=== PATIENT | female | born 1985 | race Caucasian/White ===

== ENCOUNTER 2019-03-29 11:25 | Emergency (ER) | payer MEDICAID ==
[~2019-03-29] VITALS: Ht 160 cm; Wt 77.1 kg
--- NOTE | 2019-03-29 11:29 | NUR ---
PT BIBA TO BED 01.
[2019-03-29 11:33] VITALS: BP 155/73
[2019-03-29] MEDS ORDERED: NACL 0.9% 500 ML IV ONE ×2 (11:34)
--- NOTE | 2019-03-29 11:41 | NUR ---
PT BROUGHT IN BY EMS FOR ALTERED LOC AT WORK. PT WAS SLOW TO ANSWER QUESTIONS WHEN EMS ARRIVED. BLOOD SUGAR WAS 20, EMS GAVE 250CC D10 IN THE FIELD. BLOOD SUGAR WENT TO 162. PT IS ALERT UPON ARRIVAL TO ER. NO INJURY OR TRAUMA NOTED. PT IS AAOX4 AND HAS A CLEAR SPEECH. BLOOD SUGAR 74, PT PROVIDED WITH APPLE JUICE. BED RAIL UP X 1 FOR PT SAFETY. WILL CONTINUE TO MONITOR. ER MD TO SEE PT. NKA HX: DM, HTN RX: INSULIN, LABETALOL, AMLODIPINE
--- NOTE | 2019-03-29 12:07 | NUR ---
ATTEMPTED ABG 3X. PHYSICIAN STATES ABG NOT NEEDED AT THIS TIME.
[2019-03-29 12:09] LABS: BASOPHILS % (AUTO) 0.3 % (0.0-2.0); EOSINOPHILS # (AUTO) 0.1 K/uL (0-0.4); EOSINOPHILS % (AUTO) 0.7 % (0.0-4.0); HEMOGLOBIN 11.4 g/dL (12.0-16.0); LYMPHOCYTES # (AUTO) 1.8 K/uL (2.5-16.5); LYMPHOCYTES % (AUTO) 23.2 % (20.5-51.1); MEAN CORPUSCULAR HEMOGLOBIN 25 pg (27-31); MEAN CORPUSCULAR HGB CONC 32 g/dL (33-37); MEAN CORPUSCULAR VOLUME 76.9 fL (80-94); MONOCYTES # (AUTO) 0.5 K/uL (0.8-1.0); MONOCYTES % (AUTO) 7.1 % (1.7-9.3); NEUTROPHILS # (AUTO) 5.3 K/uL (1.8-7.7); NEUTROPHILS % (AUTO) 68.7 % (42.2-75.2); PLATELET COUNT (AUTO) 250 K/uL (140-450); RED BLOOD CELL COUNT(AUTO) 4.56 MIL/uL (4.20-5.40); RED CELL DISTRIBUTION WIDTH 14.8 % (11.6-13.7); WHITE BLOOD COUNT (AUTO) 7.8 K/uL (4.8-10.8)
[2019-03-29 12:16] LABS: ALBUMIN 3.3 g/dL (3.4-5.0); ANION GAP 16.4 (8-16); ASPARTATE AMINOTRANSFERASE 16 U/L (15-37); CARBON DIOXIDE 24.3 mmol/L (21-32); CHLORIDE 101 mmol/L (98-107); CREATININE 1.3 mg/dL (0.6-1.3); GFR ARICAN-AMERICAN 60 mL/min (>90); POTASSIUM 3.7 mmol/L (3.5-5.1); SODIUM SERUM 138 mmol/L (136-145); TOTAL BILIRUBIN 0.3 mg/dL (0.0-1.0); UREA NITROGEN, BLOOD 22 mg/dL (7-18)
[2019-03-29 12:30] LABS: GLUCOSE 47 mg/dL (74-106)
[2019-03-29 12:31] LABS: ACETONE, SERUM NEGATIVE (NEGATIVE)
--- NOTE | 2019-03-29 14:48 | NUR ---
Patient discharged with v/s stable. Written and verbal after care instructions given and explained. Patient alert, oriented and verbalized understanding of instructions. Ambulatory with steady gait. All questions addressed prior to discharge. ID band removed. Patient advised to follow up with PMD. Rx of ACCU CHECK ACTIVE BLOOD GLUCOSE METER KIT given. Patient educated on indication of medication including possible reaction and side effects. Opportunity to ask questions provided and answered.
[2019-03-29 14:49] VITALS: BP 155/73
== END 2019-03-29 11:48 | disposition home or self-care (01) ==
LOC: MED 11:25
DX: E11.649 Type 2 diabetes mellitus with hypoglycemia without coma (principal); I10 Essential (primary) hypertension
CPT/HCPCS: 36415; 80053; 82009; 82948; 85025; 96360; 96361; 99283; J7030

== ENCOUNTER 2019-05-01 11:30 | Emergency (ER) | payer MEDICAID ==
[~2019-05-01] VITALS: Ht 160 cm; Wt 77.1 kg
--- NOTE | 2019-05-01 11:33 | NUR ---
PATIENT BIBA TO BED 9 AT THIS TIME.
[2019-05-01 11:37] VITALS: BP 166/89
--- NOTE | 2019-05-01 11:41 | NUR ---
33 Y/O FEMALE BIBA C/C OF HYPOGLYCEMIA. PER PATIENT "DONT REMEMBER ANYTHING, WHEN WOKE UP I WAS WITH THE PARAMEDICS" PER PATIENT HAD BREAKFAST THIS AM AND ALSO GAVE HER SELF INSULIN. PT NKA. MEDICAL HX OF DM I, HTN. RX FOR DM, HTN. PT DENIES V/D. PT CURRENTLY WITH NAUSEA AND DISCOMFORT ON THE NECK. NO PAIN. SIDE RAIL X1.
--- NOTE | 2019-05-01 11:56 | NUR ---
DR VINCENT AT BEDSIDE
--- NOTE | 2019-05-01 12:30 | NUR ---
PT AMBULATED TO RESTROOM WITH STEADY GAIT
[2019-05-01 12:32] LABS: BASOPHILS % (AUTO) 0.3 % (0.0-2.0); EOSINOPHILS # (AUTO) 0.1 K/uL (0-0.4); EOSINOPHILS % (AUTO) 0.9 % (0.0-4.0); HEMATOCRIT 34.2 % (36-48); HEMOGLOBIN 10.9 g/dL (12.0-16.0); LYMPHOCYTES # (AUTO) 1.7 K/uL (2.5-16.5); LYMPHOCYTES % (AUTO) 19.4 % (20.5-51.1); MEAN CORPUSCULAR HEMOGLOBIN 24 pg (27-31); MEAN CORPUSCULAR HGB CONC 32 g/dL (33-37); MONOCYTES # (AUTO) 0.5 K/uL (0.8-1.0); MONOCYTES % (AUTO) 5.9 % (1.7-9.3); NEUTROPHILS # (AUTO) 6.3 K/uL (1.8-7.7); NEUTROPHILS % (AUTO) 73.5 % (42.2-75.2); PLATELET COUNT (AUTO) 272 K/uL (140-450); RED CELL DISTRIBUTION WIDTH 16.1 % (11.6-13.7); WHITE BLOOD COUNT (AUTO) 8.5 K/uL (4.8-10.8)
--- NOTE | 2019-05-01 12:32 | NUR ---
PT AMBULATED BACK TO BED 9 WITH STEADY GAIT.
--- NOTE | 2019-05-01 12:35 | NUR ---
CALLED DIETARY TO BRING FOOD TRAY - NO ANSWER
[2019-05-01 12:41] LABS: ANION GAP 13.4 (8-16); CARBON DIOXIDE 25.1 mmol/L (21-32); CREATININE 1.2 mg/dL (0.6-1.3); POTASSIUM 3.5 mmol/L (3.5-5.1)
[2019-05-01 12:49] LABS: ALBUMIN 3.6 g/dL (3.4-5.0); TOTAL BILIRUBIN 0.4 mg/dL (0.0-1.0)
--- NOTE | 2019-05-01 12:50 | NUR ---
PT PROVIDED WITH CONSISTANT CARB DIET TRAY
--- NOTE | 2019-05-01 13:21 | NUR ---
PT RESTING IN BED, SIDE RAIL X1.
--- NOTE | 2019-05-01 14:10 | NUR ---
PT RESTING IN BED, SIDE RAIL X1
--- NOTE | 2019-05-01 14:10 | NUR ---
Elaina young in ED - 05/01/19 at 1410 by [email or web address] PT RESTING IN BED, SIDE RAIL X1
--- NOTE | 2019-05-01 14:59 | NUR ---
PT RESTING IN BED, VSS STABLE, SIDE RAIL X1
--- NOTE | 2019-05-01 15:02 | NUR ---
Patient discharged with v/s stable. Written and verbal after care instructions given and explained. Patient verbalized understanding. AAOx4. Ambulatory with steady gait. Will be picked up by family member. All questions addressed prior to discharge. Advised to follow up with PMD. Addendum: 05/01/19 at 1507 by CHANDLER LT AC IV REMOVED --CANNULA INTACT.
[2019-05-01 15:05] VITALS: BP 146/88
== END 2019-05-01 15:15 | disposition home or self-care (01) ==
LOC: MED 11:30
DX: E11.649 Type 2 diabetes mellitus with hypoglycemia without coma (principal); I10 Essential (primary) hypertension
CPT/HCPCS: 36415; 80053; 81002; 81025; 83036; 84484; 85025; 93005; 99284